=== PATIENT | male | born 1945 | race Caucasian/White ===

== ENCOUNTER → 2016-04-08 | Outpatient (CLI) | payer MEDICARE, OTHER ==
[~2016-04-08] MED LIST: AMARYL1 MG; AMLODIPINE-VAL1 EAC2 PO; AMOXICILLI200 MG/5 M; ANIMAL SHAPES1 EAC2; AVANDIA PO; AVODART0.5 MG PO; BAYER ASPIRIN325 M1 PO; BP PILL; CALCIUM + D 6001 TA1 PO; CALCIUM 500 + D1 TAB; CARAFATE1 G PO; CELEBREX PO; CLARITIN10 M2; CRESTOR PO; DEXILANT60 MG; DEXILANT60 MG PO; DIABETES PILL; DIOVAN HCT 160/1 TAB; DIOVAN HCT 160/1 TAB PO; DIOVAN HCT 3201 EACH PO; DIOVAN40 MG PO; FENOFIBRATE145 MG PO; FIORICET 50-321 EACH PO; FIORICET1 TAB; FISH OIL 1,0001 CA2 PO; FISH OIL 1,2001 EACH; FLOMAX0.4 MG PO; GLUCOPHAGE XR500 MG PO; HYZAAR 100-25 T1 TA1 PO; IBUPROFEN800 MG PO; LEVAQUIN; LIPITOR; LIPITOR20 MG PO; METFORMIN HCL500 M1 PO; MOBIC PO; MULTI-DAY VITAM1 TAB PO; MULTI-VITAMIN1 TAB; NEXIUM; NEXIUM PO; PHENERGAN PO; PROMETHAZINE D118 ML; REMICADE; REMICADE INFUSION; TORADOL10 MG; TRICOR; TRICOR134 MG PO; TRICOR145 MG PO; UNKNOWN MEDS; VICODIN 5/500 T1 TAB PO; ZYRTEC
--- NOTE | ~2016-04-08 | CR63 ---
[facility]. [facility] A Service of [facility] & [facility] RADIOLOGY TEXT RESULTS PATIENT: DESTINEE SHAH LOCATION: [facility] : 41 UNIT #: [id number] AGE: [address]: Lora CurielP SEX: M ORDER DR: [id number] [address] [address] [id number] O MR#: [id number] Acc #: [id number] NAME: DESTINEE SHAH : 1945 SEX: M STUDY DATE/TIME: 04/08/2016 13:36 UNIT: [facility] ROOM: STUDY DESCRIPTION: CR Chest 2 View Attending Physician: Lora Curiel A.P.R.N. Referring Physician: Lora Curiel A.P.R.N. Ordering Physician: Lora Curiel A.P.R.N. Primary Care Physician: Lora Curiel A.P.R.N. MEDICAL IMAGING REPORT This report is preliminary unless electronic signature is present. EXAM PA and lateral chest 04/08/2016 COMPARISON STUDIES 03/14/2012 HISTORY Cough and congestion beginning 4-5 days ago. PA and lateral views are obtained. FINDINGS The heart size is normal. Vascular pattern is normal. Lungs show some chronic pulmonary parenchymal scarring. No acute infiltrates are seen. CONCLUSION Stable chest. No active disease. Dictated by... Rj Godinez M.D. THIS IS AN ELECTRONICALLY VERIFIED REPORT Rj Godinez M.D. at 04/10/2016 4:46 PM LISANDRA/jn TD: 04/08/2016 17:32 JOB #: [id number] MEDICAL IMAGING REPORT
== END | disposition home or self-care (01) ==
LOC: SRAD 13:29
DX: R05 Cough (principal)
CPT/HCPCS: 71020

== ENCOUNTER 2016-06-06 13:08 | Emergency (ER) | payer MEDICARE, OTHER ==
--- NOTE | ~2016-06-06 | CR63 ---
[facility] A Service of [facility] RADIOLOGY TEXT RESULTS PATIENT: DESTINEE SHAH LOCATION: SED : 41 UNIT #: [id number] AGE: [address]: Juanita Tavarez APRN SEX: M ORDER DR: [id number] [place] [id number] E MR#: [id number] Acc #: [id number] NAME: DESTINEE SHAH : 1945 SEX: M STUDY DATE/TIME: 06/06/2016 13:11 UNIT: SED ROOM: STUDY DESCRIPTION: CR Chest 2 View Attending Physician: Juanita Tavarez A.P.R.N. Referring Physician: Juanita Tavarez A.P.R.N. Ordering Physician: Juanita Mims A.P.R.N. Primary Care Physician: Lora Curiel A.P.R.N. MEDICAL IMAGING REPORT This report is preliminary unless electronic signature is present. EXAM Chest 2 views, 06/06/2016 COMPARISON Chest 2 views, 04/08/2016 HISTORY Cough for a week, worse. FINDINGS Two views of the chest were obtained. PA and lateral examination of the chest upright shows a good expansion of the parenchyma with a normal distribution of the pulmonary vascularity. There is no indication of congestion, effusion, infiltrate, tumor, or nodular density. The pleural reflections and diaphragmatic contours are normal. The cardiac silhouette and mediastinal anatomy is within normal limits. IMPRESSION Normal chest. Dictated by... Martin Ozuna M.D. THIS IS AN ELECTRONICALLY VERIFIED REPORT Martin Ozuna M.D. at 06/08/2016 3:02 PM CPR/zandra TD: 06/06/2016 14:15 [facility] A Service of [facility] RADIOLOGY TEXT RESULTS PATIENT: DESTINEE SHAH LOCATION: [facility] : 43 UNIT #: [id number] AGE: [address]: Juanita Tavarez APRN SEX: M ORDER DR: JOB #: [id number] MEDICAL IMAGING REPORT Page 1 of 1
== END 2016-06-06 14:07 | disposition home or self-care (01) ==
LOC: SED 13:08
DX: J06.9 Acute upper respiratory infection, unspecified (principal); G43.909 Migraine, unspecified, not intractable, without status migrainosus; K21.9 Gastro-esophageal reflux disease without esophagitis; Z79.899 Other long term (current) drug therapy
CPT/HCPCS: 71020; 99283

== ENCOUNTER → 2016-09-14 | Outpatient (CLI) | payer MEDICARE ==
[~2016-09-14] MED LIST changes: +DIOVAN; +JARDIANCE10 MG; +VERAPAMIL ER240 M1
--- NOTE | ~2016-09-14 | CT57 ---
[facility] A Service of [facility] RADIOLOGY TEXT RESULTS PATIENT: EDSTINEE SHAH LOCATION: [facility] : 41 UNIT #: [id number] AGE: [address]: Rj Chen MD SEX: M ORDER DR: [id number] [place] [id number] [facility]. [place], [place] [address] [id number] O MR#: [id number] [facility] #: [id number] NAME: DESTINEE SHAH : 1945 SEX: M STUDY DATE/TIME: 09/14/2016 7:14 UNIT: [facility] ROOM: STUDY DESCRIPTION: CT Chest Wo Cont Attending Physician: Rj Chen M.D. Referring Physician: Rj Chen M.D. Ordering Physician: Rj Chen M.D. Primary Care Physician: Deondre Benoit M.D. MEDICAL IMAGING REPORT This report is preliminary unless electronic signature is present EXAM CT chest. INDICATION Shortness of air. Two-month duration. Gastroesophageal reflux. Hypertension. COPD. TECHNIQUE CT of the thorax without contrast. High resolution axial images were obtained in the supine position during inspiration and expiration. Inspiration images were obtained in the prone position as well. The exam was performed as a high-resolution chest CT. This CT exam was performed with one or more of the following radiation dose reduction techniques: automatic exposure control, adjustment of mA and/or kV according to patient size, and iterative reconstruction. FINDINGS There is no evidence of a significant interstitial lung disease. No architectural distortion/honeycombing, ground-glass densities, or focal air trapping. There is some mild central bronchiectasis. There is some benign calcified granulomas in the lungs indicative of prior granulomatous exposure. No pathologically enlarged mediastinal or hilar lymph nodes. The thoracic aorta is normal in caliber. No pericardial or pleural effusion. IMPRESSION 1. No evidence of a significant interstitial lung disease. Specifically, there is no evidence of a usual interstitial pneumonia. 2. Mild central bronchiectasis. 3. No evidence of active alveolitis. [facility] A Service of [facility] RADIOLOGY TEXT RESULTS PATIENT: DESTINEE SHAH LOCATION: [facility] : 43 UNIT #: [id number] AGE: [address]: Rj Chen MD SEX: M ORDER DR: Dictated by... Alvarado Partida M.D. THIS IS AN ELECTRONICALLY VERIFIED REPORT Alvarado Partida M.D. at 09/15/2016 4:14 PM WALDO/malia TD: 09/14/2016 18:55 JOB #: [id number] MEDICAL IMAGING REPORT Page 1 of 1 COPY
== END | disposition home or self-care (01) ==
LOC: CCAT 06:18
DX: R06.02 Shortness of breath (principal); J47.9 Bronchiectasis, uncomplicated
CPT/HCPCS: 71250

== ENCOUNTER 2016-10-23 20:45 | Emergency (ER) | payer MEDICARE ==
[~2016-10-23] VITALS: Ht 157.5 cm; Wt 89.8 kg
--- NOTE | ~2016-10-23 | EKG ---
PATIENT: DESTINEE SHAH UNIT #: [id number] Ventricular Rate: 94 BPM Atrial Rate: 94 BPM P-R Interval: 186 ms QRS Duration: 96 ms Q-T Interval: 360 ms QTC Calculation(Bezet): 450 ms P [place]: 35 degrees Calculated R [place]: 19 degrees Calculated T [place]: 47 degrees Diagnosis Line: Normal sinus rhythm Diagnosis Line: Normal ECG Diagnosis Line: No previous ECGs available Diagnosis Line: Confirmed by KACI NAGEL MD ([id number]) on Diagnosis Line: 10/28/2016 11:16:51 AM INTERPRETING MD: SHONA DUNAWAY
--- NOTE | ~2016-10-23 | CR2 ---
[facility] A Service of [facility] RADIOLOGY TEXT RESULTS PATIENT: DESTINEE SHAH LOCATION: SED : 41 UNIT #: [id number] AGE: [address]: Gregory Fox DO SEX: M ORDER DR: [id number] [place] [address] [id number] E MR#: [id number] Acc #: [id number] NAME: DESTINEE SHAH : 1945 SEX: M STUDY DATE/TIME: 10/23/2016 22:39 UNIT: SED ROOM: STUDY DESCRIPTION: CR Abdomen Acute Series Attending Physician: Gregory Fox D.O.. Ordering Physician: Gregory Fox D.O.. Primary Care Physician: Deondre Benoit M.D. MEDICAL IMAGING REPORT This report is preliminary unless electronic signature is present. EXAM Acute abdomen series, 10/23/2016. HISTORY 71-year-old male in the ED complaining of 2-day history of upper abdominal pain. TECHNIQUE Flat and upright abdomen series with PA upright chest x-ray. FINDINGS Bowel gas pattern is within normal limits. No evidence of bowel obstruction, adynamic ileus or bowel perforation. Mild cardiomegaly. Mild left basilar pulmonary scarring. No acute pulmonary infiltrate or pleural effusion. IMPRESSION 1. Negative abdomen. Normal bowel gas pattern. 2. No active disease in the chest. Mild cardiomegaly. Dictated by... Bryan Shaw M.D. THIS IS AN ELECTRONICALLY VERIFIED REPORT Bryan Shaw M.D. at 10/24/2016 9:50 PM GENA/bronwyn TD: 10/24/2016 21:34 JOB #: [id number] MEDICAL IMAGING REPORT [facility] A Service of [facility] RADIOLOGY TEXT RESULTS PATIENT: DESTINEE SHAH LOCATION: SED : 41 UNIT #: [id number] AGE: [address]: Gregory Fox DO SEX: M ORDER : Page 1 of 1
[~2016-10-23 20:45] MED LIST changes: -DIOVAN; -JARDIANCE10 MG; -VERAPAMIL ER240 M1
[2016-10-23] MEDS ORDERED: VERAPAMIL ER240 M1 (20:53)
[2016-10-23] MEDS ORDERED: JARDIANCE10 MG (20:53)
[2016-10-23] MEDS ORDERED: DIOVAN (20:53)
[2016-10-23 21:32] LABS: BASOPHIL# 0.1 X10e3 (0-0.3); BASOPHIL% 0.9 % (0-2.5); MONOCYTE# 0.7 X10e3 (0-1.0); NEUTROPHIL# 6.1 X10e3 (1.5-7.1)
[2016-10-23 21:34] LABS: EOSINOPHIL# 0.4 X10e3 (0-0.7); HEMATOCRIT 40.1 % (38.0-50.0); HEMOGLOBIN 14.3 gm/dL (13.0-16.0); LYMPHOCYTE# 2.1 X10e3 (1.0-3.5); LYMPHOCYTE% 22.9 % (17.0-45.0); MEAN CELL VOLUME 88.1 FL (83-96); MEAN CORPUSCULAR HEMOGLOBIN 31.5 PG (28-34); MEAN CORPUSCULAR HGB CONC 35.8 g/dL (30-36); MEAN PLATELET VOLUME 7.2 FL (6.5-11.5); MONOCYTE% 7.1 % (3.0-12.0); NEUTROPHIL% 65.1 % (40-75); PLATELET COUNT 220 X10e3 (140-420); RED BLOOD COUNT 4.55 X10e (3.90-5.60); RED CELL DISTRIBUTION WIDTH 13.2 % (11.0-15.5); WHITE BLOOD COUNT 9.3 X10e3 (4.0-10.5)
[2016-10-23 21:35] LABS: DIFF IND NO
[2016-10-23 21:47] LABS: BILIRUBIN, DIRECT 0.1 mg/dL (0.0-0.2); BILIRUBIN,INDIRECT 0.5 mg/dL (0.0-0.9); BILIRUBIN,TOTAL 0.6 mg/dL (0.2-2.0); CALCIUM SERUM 9.2 mg/dL (8.4-10.2); CREATININE SERUM 1.3 mg/dL (0.6-1.4); GLOM FILT RATE Estimated 54.1 mL/min (>60); POTASSIUM 3.4 mmol/L (3.5-5.1); PROTEIN TOTAL SERUM 7.2 g/dL (6.0-8.3)
[2016-10-23 21:48] LABS: POC - CKMB 1.6 ng/mL (0.0-7.9)
[2016-10-23 21:49] LABS: POC - MYOGLOBIN 95.7 ng/mL (0.0-169.0); POC - TROPONIN <0.05 ng/mL (<=0.05)
[2016-10-23 23:39] LABS: POC - CKMB 2.2 ng/mL (0.0-7.9); POC - TROPONIN <0.05 ng/mL (<=0.05)
== END 2016-10-24 00:15 | disposition home or self-care (01) ==
LOC: SED 20:45
PROVIDERS: Emergency Medicine
DX: K21.9 Gastro-esophageal reflux disease without esophagitis (principal); E11.9 Type 2 diabetes mellitus without complications
CPT/HCPCS: 36415; 74022; 80048; 80076; 82553; 83874; 84484; 85025; 86677; 93005; 96374; 99284